=== PATIENT | female | born 1985 | race Caucasian/White ===

== ENCOUNTER 2017-10-23 14:07 | Emergency (ER) | payer MEDICAID ==
[~2017-10-23] VITALS: Ht 160 cm; Wt 69.5 kg
[2017-10-23 14:35] VITALS: BP 140/107
[2017-10-23] MEDS ORDERED: ketorolac trometh inj. 60 MG/2 ML VIAL IM ONE (14:55)
[2017-10-23] MEDS ORDERED: acetaminophen 325mg tablet PO ONE (14:55)
[2017-10-23] MEDS ORDERED: LIDOcaine 5% patch TP ONE (14:55)
[2017-10-23] MEDS ORDERED: ACET-2144 PO (15:08)
[2017-10-23] MEDS ORDERED: LIDO700A32 TP (15:08)
[2017-10-23] MEDS ORDERED: IBUP-1986 PO (15:08)
[2017-10-23] MEDS ORDERED: HYDR-3965 PO (15:35)
== END 2017-10-23 15:41 | disposition home or self-care (01) ==
LOC: ER 14:08
DX: M94.0 Chondrocostal junction syndrome [Tietze] (principal); F17.200 Nicotine dependence, unspecified, uncomplicated; F15.10 Other stimulant abuse, uncomplicated; Z56.0 Unemployment, unspecified; Z79.899 Other long term (current) drug therapy
CPT/HCPCS: 71045; 96372; 99283; J1885

== ENCOUNTER 2019-01-08 12:06 | Emergency (ER) | payer MEDICAID ==
[~2019-01-08] VITALS: Ht 160 cm; Wt 62.0 kg
[~2019-01-08 12:06] MED LIST: IBUP-1986 PO; LIDO700A32 TP; LIDOcaine 1% w/EPI 1:100,000 30ml vial (MDV) ONE
[2019-01-08 12:19] VITALS: BP 112/68
== END 2019-01-08 15:20 | disposition home or self-care (01) ==
LOC: ER 12:06
DX: S61.212A Laceration without foreign body of right middle finger without damage to nail, initial encounter (principal); F15.90 Other stimulant use, unspecified, uncomplicated; F10.99 Alcohol use, unspecified with unspecified alcohol-induced disorder; Z56.0 Unemployment, unspecified; Z79.899 Other long term (current) drug therapy; W26.0XXA Contact with knife, initial encounter; Y93.89 Activity, other specified; Y92.89 Other specified places as the place of occurrence of the external cause; Y99.8 Other external cause status; Y90.9 Presence of alcohol in blood, level not specified
CPT/HCPCS: 12001; 99283